=== PATIENT | female | born 1985 | race Caucasian/White ===

== ENCOUNTER 2016-11-13 13:09 | Emergency (ER) | payer MEDICAID, OTHER ==
[~2016-11-13] VITALS: Wt 77.0 kg
[2016-11-13] MEDS ORDERED: morphine 2 MG INJ IV STA (14:17)
[2016-11-13] MEDS ORDERED: ONDANSETRON 4 MG INJ IV STA (14:17)
[2016-11-13] MEDS ORDERED: SOD CHLORIDE 0.9% 1,000 ML IV STA (14:17)
[2016-11-13] MEDS ORDERED: FAMOTIDINE 20 MG TAB PO STA (14:17)
--- NOTE | 2016-11-13 14:20 | ERD ---
ER Documentation Chief Complaint Date/Time DATE: 11/13/16 TIME: 14:18 Chief Complaint ABD PAIN WITH NAUSEA AND VOMITING FOR THE PAST WEEK. NO DIARHEA HPI This 30-year-old female presents to the ER with abdominal pain that is in multiple parts of her abdomen described as an aching pain that is been present on and off for several years that has been worse since she had an EGD a week ago. She has nausea on and off with occasional vomiting that is nonbloody and nonbilious. She states she has had multiple multiple workups and nobody can figure out what is wrong with her abdomen. Since her EGD came out negative. States that she also has fibromyalgia. ROS All systems reviewed and are negative except as per history of present illness. Physical Exam Vitals Vital Signs Date Time Temp Pulse Resp B/P Pulse Ox O2 Delivery O2 Flow Rate FiO2 11/13/16 13:14 98.5 92 20 108/77 98 Physical Exam Const: [] No distress Head: Atraumatic Eyes: Normal Conjunctiva ENT: Normal External Ears, Nose and Mouth. Neck: Full range of motion..~ No meningismus. Resp: Clear to auscultation bilaterally Cardio: Regular rate and rhythm, no murmurs Abd: Soft, very mild diffuse abdominal tenderness with no particular tenderness in the right lower quadrant and no guarding or rebound, no masses palpable, non distended. Normal bowel sounds Skin: No petechiae or rashes Back: No midline or flank tenderness Ext: No cyanosis, or edema Neur: Awake and alert Psych: Normal Mood and Affect BETH GARCIA DO November 13, 2016 14:20
[2016-11-13 15:15] LABS: ADD SCAN DIFF NO
[2016-11-13 15:22] LABS: BASOPHILS % 0.1 % (0.0-2.0); EOSINOPHILS % 0.5 % (0.0-7.0); HEMATOCRIT 37.2 % (37.0-47.0); HEMOGLOBIN 11.5 g/dl (12.0-16.0); LYMPHOCYTES # 1.1 10^3/ul (0.8-2.9); LYMPHOCYTES % 15.1 % (15.0-51.0); MEAN CORPUSCULAR HEMOGLOBIN 25.6 pg (29.0-33.0); MEAN CORPUSCULAR HGB CONC 30.9 g/dl (32.0-37.0); MEAN CORPUSCULAR VOLUME 82.7 fl (82.0-101.0); MEAN PLATELET VOLUME 10.3 fl (7.4-10.4); MONOCYTE # 0.6 10^3/ul (0.3-0.9); MONOCYTES % 7.8 % (0.0-11.0); NEUTROPHIL # 5.7 10^3/ul (1.6-7.5); NEUTROPHILS % 75.8 % (39.0-77.0); PLATELET COUNT 348 10^3/UL (140-415); RED CELL DISTRIBUTION WIDTH 15.2 % (11.5-14.5); WHITE BLOOD COUNT 7.5 10^3/ul (4.8-10.8)
[2016-11-13] MEDS ORDERED: PRD1OP5 BOTH EYES (15:40)
[2016-11-13] MEDS ORDERED: FLUT9.9S NASAL (15:40)
[2016-11-13] MEDS ORDERED: PRED2.5T3 PO (15:40)
[2016-11-13] MEDS ORDERED: DORZ10DR22 BOTH EYES (15:41)
[2016-11-13] MEDS ORDERED: TIMO15DR15 BOTH EYES (15:41)
[2016-11-13 15:50] VITALS: PULSE 61
[2016-11-13 15:52] LABS: ALBUMIN 3.5 g/dl (3.3-4.9); ALBUMIN/GLOBULIN RATIO 0.97; BILIRUBIN,INDIRECT 0.1 mg/dl (0-1.1); BILIRUBIN,TOTAL 0.1 mg/dl (0.2-1.3); CALCIUM 9.2 mg/dl (8.4-10.2); CREATININE 0.65 mg/dl (0.44-1.00); POTASSIUM 4.7 mmol/L (3.5-5.1); TOTAL PROTEIN 7.1 g/dl (6.1-8.1)
[2016-11-13] MEDS ORDERED: DICLOFENAC SODIUM 37.5 MG/ML VIAL IV STA (16:42)
--- NOTE | 2016-11-13 16:46 | RADRPT ---
PROCEDURE: CT abdomen and pelvis without contrast. CLINICAL INDICATION: Abdominal pain. TECHNIQUE: CT scan of the abdomen and pelvis without contrast was performed on a multi-slice CT [facility] . Oral contrast was given. Sagittal and coronal reformatted images were obtained from the a xial source images. One or more of the following dose reduction techniques were used: - Automated exposure control. - Adjustment of the mA and/or kV according to patient size. - Use of iterative reconstruction technique. DLP 918.4 mGycm. CTDIvol 17 mGy COMPARISON: None FINDINGS: The lung bases are clear. There is limited evaluation of the solid viscera from the lack of IV con trast. Small nonobstructing left lower pole renal calculi are seen measuring less than 4 mm in diameter. T here are no right-sided renal stones. There are no ureteral calculi present with no evidence of hyd ronephrosis bilaterally. Portions of the ureters are partially obscured. There is normal density of the liver with no gross focal lesion or biliary ductal dilatation. The gallbladder is removed. The spleen is unremarkable without mass. The adrenal glands are within normal limits without mass. The pancreas is unremarkable without focal lesion or surrounding inflammatory changes. There is no bowel obstruction or focal bowel inflammation. The appendix is unremarkable. There is a diffusely fecal filled colon. There is no free air or free fluid. There are no enlarged lymph node s. The aorta is unremarkable and there is no acute osseous abnormality. The uterus and adnexal structures are grossly unremarkable. IMPRESSION: Small nonobstructing left lower pole renal calculi are present. There are no ureteral stones presen t with no hydronephrosis. No evidence of bowel obstruction or inflammation. There is a prominently fecal filled colon suggest maximilian for constipation. RPTAT: AA .Byron Arce MD, MD Date Time Electronically viewed and signed by .Byron Arce MD, MD on 11/13/2016 16:46 .Jameson/
[2016-11-13 16:49] LABS: ADD UMIC NO; URINE BILIRUBIN (Dip) NEGATIVE (NEGATIVE); URINE BLOOD (Dip) NEGATIVE (NEGATIVE); URINE COLOR LT. YELLOW (YELLOW); URINE GLUCOSE (Dip) NEGATIVE (NEGATIVE); URINE KETONES (Dip) NEGATIVE (NEGATIVE); URINE LEUKOCYTE ESTERASE (Dip) NEGATIVE (NEGATIVE); URINE NITRITE (Dip) NEGATIVE (NEGATIVE); URINE TOTAL PROTEIN (Dip) NEGATIVE (NEGATIVE); URINE UROBILINOGEN (Dip) 0.2 E.U./dL (0.1-1.0)
[2016-11-13] MEDS ORDERED: DICY10CA60 PO (18:28)
[2016-11-13] MEDS ORDERED: MAGN296S40 PO (18:28)
[2016-11-13] MEDS ORDERED: POLY17PO6 PO (18:28)
[2016-11-13] MEDS ORDERED: ONDA4TAB11 PO (18:29)
[2016-11-13 18:54] VITALS: BP 98/53; RESP 16
[2016-11-14] MEDS ORDERED: AZIT250T94 PO (03:55)
[2016-11-14] MEDS ORDERED: UDROBDM PO (03:55)
== END 2016-11-13 18:58 | disposition home or self-care (01) ==
LOC: E/R 13:09
DX: R10.84 Generalized abdominal pain (principal); R40.2252 Coma scale, best verbal response, oriented, at arrival to emergency department; R11.2 Nausea with vomiting, unspecified; R40.2142 Coma scale, eyes open, spontaneous, at arrival to emergency department; R40.2362 Coma scale, best motor response, obeys commands, at arrival to emergency department
CPT/HCPCS: 74176; 80053; 81003; 83605; 83690; 84703; 85025; J2270; J2405; J7030; Z7610; 36415; 76937; 96374; 96375

== ENCOUNTER 2016-11-14 01:40 | Emergency (ER) | payer SELFPAY ==
[~2016-11-14] VITALS: Ht 149.9 cm; Wt 80.5 kg
[~2016-11-14 01:40] MED LIST: DICY10CA60 PO; DORZ10DR22 BOTH EYES; FLUT9.9S NASAL; MAGN296S40 PO; ONDA4TAB11 PO; POLY17PO6 PO; PRD1OP5 BOTH EYES; PRED2.5T3 PO; TIMO15DR15 BOTH EYES
[2016-11-14 01:41] VITALS: Ht 149.9 cm; Wt 80.5 kg
--- NOTE | 2016-11-14 02:17 | ERA ---
ER Documentation Chief Complaint Date/Time DATE: 11/14/16 TIME: 02:17 Chief Complaint feeling chilled HPI The patient is a 30-year-old female, presenting to the ER because of intermittent cough for the last 3 days. She was seen in the ER yesterday for abdominal pain and had extensive workup including a negative CT scan of the abdomen and pelvic. She came back today because of intermittent cough. He denies fever, chills, neck pain, chest pain, dyspnea, abdominal pain, vomiting, dysuria. She does not smoke, drinks socially, denies illicit drug Past medical history: Juvenile rheumatoid arthritis, asthma, fibromyalgia, ADHD Past surgical history: Cholecystectomy, right eye surgery ROS All systems reviewed and are negative except as per history of present illness. Medications Home Meds Active Scripts Guaifenesin-Dextromethorphan* (Robitussin* DM) 100MG/10MG/5ML Syrup, 10 ML PO Q6H Y for COUGH, #120 ML Prov:ROXI FROST MD 11/14/16 Azithromycin* (Zithromax*) 250 Mg Tablet, 250 MG PO .DimitriPACK DIRECTED, #6 TAB TAKE 500 MG (2 TABS) THE FIRST DAY THEN 250 MG (1 TAB) DAYS 2-5 Prov:ROXI FROST MD 11/14/16 Ondansetron (Zofran Odt) 4 Mg Tab.rapdis, 4 MG PO Q6, #10 Prov:BETH GARCIA DO 11/13/16 Dicyclomine Hcl* (Bentyl*) 10 Mg Capsule, 10 MG PO QID, #20 CAP Prov:BETH GARCIA DO 11/13/16 Magnesium Citrate* (Magnesium Citrate*) 296 Ml Solution, 296 ML PO ONCE, #1 BOTTLE Prov:BETH GARCIA DO 11/13/16 Polyethylene Glycol* (Miralax*) 17 Gm Powd.pack, 17 GM PO DAILY, #10 Prov:BETH GARCIA DO 11/13/16 Reported Medications Dorzolamide-Timolol* (Cosopt*) 2%-0.5% - 10 Ml Soln, 1 DROP BOTH EYES BID, BOTTLE 11/13/16 Timolol Maleate* (Timolol Maleate* Ophth) 0.25%-15ml Opht, 1 DROP BOTH EYES BID , #1 EA 11/13/16 Prednisolone Acetate* (Pred Forte*) 5 Ml Susp, 1 DROP BOTH EYES QID, EA 11/13/16 Fluticasone Propionate (Flonase Allergy Relief) 9.9 Ml Leonardo.susp, 1 SPRAY NASAL BID, #1 BOTTLE TO EACH NOSTRIL 11/13/16 Prednisone* (Prednisone*) 2.5 Mg Tablet, 7.5 MG PO DAILY, TAB PER PT [employer] [place] 11/13/16 Allergies Allergies: Coded Allergies: Sulfa (Sulfonamide Antibiotics) (Verified Allergy, Severe, 11/13/16) aspirin (Verified Allergy, Severe, 11/13/16) BLEEDING ULCERS naproxen (Verified Allergy, Severe, 11/13/16) BLEEDING ULCERS PMhx/Soc Hx Psychiatric Problems: Yes Hx Miscellaneous Medical Probl: Yes (Abdominal pain) Hx Alcohol Use: No Hx Substance Use: No Hx Tobacco Use: No Physical Exam Vitals Vital Signs Date Time Temp Pulse Resp B/P Pulse Ox O2 Delivery O2 Flow Rate FiO2 11/14/16 02:09 97.9 65 16 111/63 100 Room Air 11/14/16 01:41 97.1 67 16 117/70 95 Physical Exam Const: No acute distress. Head: Atraumatic. Eyes: Normal Conjunctiva. ENT: Normal External Ears, Nose and Mouth. Neck: Full range of motion. No meningismus. Resp: Clear to auscultation bilaterally. Cardio: Regular rate and rhythm, no murmurs. Abd: Soft, non distended, normal bowel sounds, non tender. Skin: No petechiae or rashes. Back: No midline or flank tenderness. Ext: No cyanosis, or edema. Neur: Awake and alert. No focal deficit Psych: Normal Mood and Affect. Procedures/[place] [id number] Radiology Main Line: [phone] DIAGNOSTIC IMAGING REPORT Patient: GINNA LOGAN : 1985 Age: 30 Sex: F MR #: [id number] DOS: 11/14/16 0000 Ordering MD: ROXI FROST MD Location: E/R Room/Bed: PROCEDURE: CHEST - 1 VIEW CLINICAL INDICATION: 30-year-old female with cough. TECHNIQUE: A single frontal AP portable view of the chest was performed. The images were reviewed on a PACS workstation. COMPARISON: CT abdomen/pelvis November 13, 2016. FINDINGS: The cardiomediastinal silhouette is within normal limits. There is no evidence for an infiltrate. The pulmonary vascularity is within normal limits. There is no evidence for pneumothorax or pneumomediastinum. The osseous structures are intact. IMPRESSION: No evidence for active cardiopulmonary disease. .Mohan Rodriguez MD, MD Date Time Electronically viewed and signed by .Mohan Rodriguez MD, MD on 11/14/2016 03:13 .M/ CC: ROXI FROST MD MEDICAL MAKING DECISION: The patient is a 30-year-old female, presenting with acute bronchitis. She remained well in the emergency department and sleeping well The differential diagnoses considered include but are not limited to asthma, COPD, pneumonia, pulmonary embolus, pleural effusion, congestive heart failure. Departure Diagnosis: Primary Impression: Bronchitis Condition: Good Comments He was discharged with Zithromax and Robitussin-DM I discussed the findings with the patient. I advised the patient to follow-up with the primary physician in about 1-2 days, sooner if needed and return if any concern. ROXI FROST MD November 14, 2016 02:17
--- NOTE | 2016-11-14 03:13 | RADRPT ---
PROCEDURE: CHEST - 1 VIEW CLINICAL INDICATION: 30-year-old female with cough. TECHNIQUE: A single frontal AP portable view of the chest was performed. The images were reviewed on a PACS workstation. COMPARISON: CT abdomen/pelvis November 13, 2016. FINDINGS: The cardiomediastinal silhouette is within normal limits. There is no evidence for an infiltrate. T he pulmonary vascularity is within normal limits. There is no evidence for pneumothorax or pneumomed iastinum. The osseous structures are intact. IMPRESSION: No evidence for active cardiopulmonary disease. .Mohan Rodriguez MD, Date Time Electronically viewed and signed by .Mohan Rodriguez MD, on 11/14/2016 03:13 .Susi/
[2016-11-14] MEDS ORDERED: UDROBDM PO (03:55)
[2016-11-14] MEDS ORDERED: AZIT250T94 PO (03:55)
[2016-11-14 04:11] VITALS: BP 119/62; PULSE 82; RESP 18; TEMP 97.7
== END 2016-11-14 05:45 | disposition home or self-care (01) ==
LOC: E/R 01:40
DX: J20.9 Acute bronchitis, unspecified (principal); J45.909 Unspecified asthma, uncomplicated
CPT/HCPCS: 71010